=== PATIENT | male | born 1995 | race Caucasian/White ===

== ENCOUNTER 2025-05-17 12:54 | Outpatient (AMB) | payer OTHER, SELFPAY ==
[2025-05-17 13:11] VITALS: BP 130/80; PULSE 69; RESP 16; TEMP 36.2; O2SAT 98; BMI 34.3
--- NOTE | 2025-05-17 13:11 | PD.RESCLINIC ---
Vital Signs 05/17/25 13:11 Height 1.91 m Height Method Stated Weight 124.738 kg Weight Measurement Method Standing Scale BMI 34.3 BP 130/80 Blood Pressure Source Automatic Cuff Blood Pressure Location Right Upper Arm Position Sitting Respiration 16 Pulse 69 Pulse Source Monitor Temp 97.2 F Temp Source Temporal Artery Scan Pulse Oximetry (%) 98 Oxygen Delivery Method Room Air Allergies/Meds Allergies & Medications Allergies No Known Allergies Allergy (Verified 05/17/25 13:13) Confirmation of home meds: Pt. unable to confirm MA Intake Visit Data Collection New Patient or Established: New Patient (never been to [facility]) Seen by Clinical Staff ONLY (RN/MA): No Pain Present Currently: No Pain scale:: 0 Pain Scale Used: [employer] Required: No PCP or OBGYN visit in last 3 months: No Do You Feel Safe at Home: Yes Authorities Contacted: N/A Smoking Status Smoking Status: Never smoker Immunization / Flu Flu Vaccine in the Last 12 Months: Yes Date of most recent flu vaccination: 05/16/25 Flu Vaccine Exclusion Criteria: Already Received Past Medical History Social History SMOKING STATUS: Smoking status: Never smoker Patient Portal Questionaires PHQ-9 PHQ-2 Over the last 2 weeks, how often have you been bothered by any of the following problems? 1. Little interest or pleasure in doing things: not at all 2. Feeling down, depressed, or hopeless: not at all Total score: 0 PHQ-9 3. Trouble falling or staying asleep, or sleeping too much: Not at all 4. Feeling tired or having little energy: Not at all 5. Poor appetite or overeating: Not at all 6. Feeling bad about yourself - or that you are a failure or have let yourself or your family down: Not at all 7. Trouble concentrating on things, such as reading the newspaper or watching television: Not at all 8. Moving or speaking so slowly that other people could have noticed? - Or the opposite - being so fidgety or restless that you have been moving around a lot more than usual: not at all 9. Thoughts that you would be better off or of hurting yourself in some way: Not at all Total score: 0 If you checked off any problems, how difficult have these problems made it for you to do your work, take care of things at home, or get along with other people?: not difficult at all Source: Developed by Drs. Walter Robertson, Ashley Rivera, Rj Al and colleagues, with an educational rosas from [employer] Social History Tobacco History Smoking Status: Never smoker Domestic Abuse History Do You Feel Safe at Home: Yes Review of Systems Report any current symptoms Only answer those that you have currently: Past Medical History Past Medical History Have you ever been diagnosed with any of the following: History of Present Illness HPI Narrative This patient is a 29-year-old male with past medical history of depression, obesity, possible IRON and GERD who presented to the [facility] for further for sleep studies for IRON. Patient reported that his has noted that patient snores a lot at night and also has couple of apneic episodes. Symptoms started 6 years ago but has been noticed to be worsening from last couple of months. He also noted to have headache and generalized bodyaches in the morning with sleepiness. Patient works in [employer] and generally follows for his normal workup in the however he stated that he has been trying to reduce weight. He was given referral to [facility] sleep center as his insurance is covered for sleep studies to qualify for CPAP machine. He was also advised to follow-up in the clinic for Ozempic as he will qualify for obesity and IRON both. PMH: As above PSH: Right hand surgery due to trauma, nasal trauma surgery Allergies: NKDA SH: Denies smoking, drinking alcohol. No history of illicit drug use Home medications: Antidepressant [patient does not remember the name of the medication], meloxicam for body aches and PPI for GERD Referral was given for sleep studies and advised to follow-up once sleep study results are back to get prescription for Ozempic. Patient gets lab work at [employer] therefore no lab work was sent during this visit. Review of Systems Review of Systems Systems Reviewed: All systems reviewed, normal except as documented Objective/Exam Narrative Physical exam: GENERAL APPEARANCE: AxOx4, obese male no acute distress. HEENT: NC, AT. MMM. EOMI, clear conjunctiva, oropharynx clear. NECK: Supple without lymphadenopathy. No stiffness or restricted ROM. HEART: Regular rate and regular rhythm, normal S1/S2, no m/r/g LUNGS: CTAB, moving air well. No crackles or wheezes are heard. ABDOMEN: Soft, nontender, nondistended with good bowel sounds heard. BACK: No CVAT, no obvious deformity. EXTREMITIES: Without cyanosis, clubbing or edema. NEUROLOGICAL: Grossly nonfocal. Alert and oriented, moving all 4 extremities. CN not formally tested but appear grossly intact. Observed to ambulate with normal gait. Skin: Warm and dry without any rash. Psych: appropriate mood and affect Assessment & Plan Diagnosis / Problem List (1) Obstructive sleep apnea: Status: Acute Assessment & Plan: - Patient reports to have symptoms of snoring excessively at night. Symptoms started 6 years ago and has been worsening from past couple of months. - Patient does complain symptoms of headache and generalized bodyaches in the morning with sleepiness. - Patient follows up in [facility] for lab testing and general checkup and came to the clinic for workup of IRON. Plan: - Referral sent to [facility] for sleep study for possible IRON and to qualify for CPAP machine - Advised on maintaining diet and excise - He was also given option for Ozempic once he gets his sleep studies and can follow-up in the clinic after he gets his sleep study results (2) Obesity (BMI 30.0-34.9): Status: Acute Assessment & Plan: - Patient has a BMI 34.3 With symptoms of IRON Plan: -Advise to manage diet and exercise - Will prescribe ozempic once patient get sleep study results Patient was seen and discussed with attending physician, Dr.Buttan Lázaro Traore MD, PGY 3 Orders: Referrals Pulmonary Function Study Referral G47.33 - Obstructive sleep apnea (adult) (pediatric) Sleep Study G47.33 - Obstructive sleep apnea (adult) (pediatric) Office Procedures [facility] Level of Care Nursing/Assessment Patient Status: Initial/New Patient Nursing Assessment/Reassessment: Medication Reconciliation, Update PMH in EMR and Vital Signs Coordination of Care: Complex Care and Chronic Disease 1-5, Complex Care/Chronic Disease 5 or more, Consent,records obtained, informed consent, Lab and Imaging orders, Results/Orders obtained and Staff clarify orders New Patient Charge New Patient Point Assignment: [id number] New Patient Point Charge: [employer] INSTALLER Level 4 ([id number]) TB Screening LTBI Screening: Has patient traveled, was born, or resided for at least 1 month, or frequent border crossing into a country with an elevated TB rate: No Immunosuppression, current or planned (HIV, organ transplant, treated with biologic agents, steroids, or other immunosuppression medication): No Close contact to someone with infectious TB disease during lifetime: No Homelessness or incarceration, current or past: No TB testing indicated at this time (at least 1 yes above): No
== END 2025-05-17 14:30 | disposition home or self-care (01) ==
LOC: HODAHC 12:54
PROVIDERS: Supervising Provider Internal Medicine; Visit Provider Student in an Organized Health Care Education/Training Program
DX: G47.33 Obstructive sleep apnea (adult) (pediatric) (principal); E66.9 Obesity, unspecified; Z71.3 Dietary counseling and surveillance; Z68.34 Body mass index [BMI] 34.0-34.9, adult; Z71.82 Exercise counseling
CPT/HCPCS: 99204; G0463